=== PATIENT | male | born 1980 | race Caucasian/White ===

== ENCOUNTER 2024-12-17 09:01 | Emergency (ER) | payer BC ==
[~2024-12-17] VITALS: Ht 167.6 cm; Wt 58.7 kg
[~2024-12-17 09:01] MED LIST: ANAPROX DS550 MG PO; CLARITIN10 MG PO; COMBIVENT1 ARO IH; HYDROCODONE BIT1 T11 PO; MOTRIN800 MG PO; NKHM; ZITHROMAX Z PA250 MG PO
== END 2024-12-17 11:05 | disposition home or self-care (01) ==
LOC: ED 09:01
DX: S93.401A Sprain of unspecified ligament of right ankle, initial encounter (principal); X50.1XXA Overexertion from prolonged static or awkward postures, initial encounter; Y93.89 Activity, other specified; Y92.89 Other specified places as the place of occurrence of the external cause; Y99.8 Other external cause status